=== PATIENT | female | born 1965 | race Caucasian/White ===

== ENCOUNTER → 2016-11-15 | Outpatient (CLI) | payer BC ==
[~2016-11-15] MED LIST: CILOXAN 5 ML5 M1 OP; MOTRIN800 MG PO; SKELAXIN800 MG PO; SYNTHROID0.175 MG PO
[2016-11-15 08:09] LABS: BASO # 0.1 10*3/uL (0.0-0.1); BASO % 0.8 % (0.0-1.0); EOS # 0.2 10*3/uL (0.0-0.4); EOS % 2.5 % (1.0-4.0); HEMATOCRIT 45.4 % (37.0-47.0); LYMPH # 2.3 10*3/uL (1.3-4.4); MEAN CELL VOLUME 90.4 fl (81.0-99.0); MEAN CORPUSCULAR HGB 29.9 pg (27.0-31.0); MEAN PLATELET VOLUME 10.3 fl (9.6-12.3); MONO # 0.7 10*3/uL (0.1-1.0); MONO % 8.4 % (3.0-9.0); NEUT # 4.6 10*3/uL (2.3-7.9); PLATELET COUNT AUTOMATED 317 10*3/uL (130-400); RED BLOOD COUNT 5.02 10*6/uL (4.10-5.10); RED CELL DISTRI WIDTH 12.9 % (0-14.5); WHITE BLOOD COUNT 7.9 10*3/uL (4.8-10.8)
[2016-11-15 08:20] LABS: ALBUMIN 3.4 gm/dl (3.1-4.5); CARBON DIOXIDE 27 mmol/L (21-32); CHLORIDE 110 mmol/L (98-107); POTASSIUM 4.6 mmol/L (3.5-5.1); SODIUM 142 mmol/L (136-145)
[2016-11-15 08:28] LABS: ALKALINE PHOSPHATASE 107 U/L (45-117); BILIRUBIN, TOTAL 0.4 mg/dl (0.2-1.0); BUN 11 mg/dl (7-24); CHOLESTEROL 244 mg/dL (<200); EST GLOM FILT AFRICAN AMERICAN > 60 ml/min; FREE T4 0.97 ng/dl (0.76-1.46); GLUCOSE 92 mg/dL (65-99); HDL CHOLESTEROL 42 mg/dl (40-60); LDL CHOLESTEROL 158 mg/dL (9-159); SGOT/AST 14 IU/L (3-35); SGPT/ALT 21 U/L (12-78); TRIGLYCERIDES 222 mg/dl (<150); VLDL CHOLESTEROL 44 mg/dL (6-40)
[2016-11-16 08:12] LABS: ESTRADIOL 004515 5.1 pg/mL (.); PROGESTERONE 004317 0.1 ng/mL (.); THYROID PEROXIDASE (TPO) AB 38 IU/mL (0-34)
[2016-11-16 13:09] LABS: THYROGLOBULIN ANTIBODY <1.0 IU/mL (0.0-0.9)
[2016-11-16 16:10] LABS: THYROTROPIN RECEPTOR AB 36.83 IU/L (0.00-1.75)
== END | disposition home or self-care (01) ==
LOC: LAB 07:33
PROVIDERS: Family Medicine
DX: Z00.01 Encounter for general adult medical examination with abnormal findings (principal); E89.0 Postprocedural hypothyroidism; E55.9 Vitamin D deficiency, unspecified; E05.00 Thyrotoxicosis with diffuse goiter without thyrotoxic crisis or storm; N95.1 Menopausal and female climacteric states; H05.242 Constant exophthalmos, left eye; Z72.0 Tobacco use

== ENCOUNTER → 2017-08-07 | Outpatient (CLI) | payer BC ==
[2017-08-07 08:43] LABS: HEMATOCRIT 43.1 % (37.0-47.0); HEMOGLOBIN 14.4 g/dl (12.0-16.0); MEAN CELL VOLUME 88.1 fl (81.0-99.0); MEAN CORPUSCULAR HGB 29.4 pg (27.0-31.0); MEAN CORPUSCULAR HGB CONC 33.4 g/dl (33.0-37.0); MEAN PLATELET VOLUME 10.8 fl (9.6-12.3); RED BLOOD COUNT 4.89 10*6/uL (4.10-5.10); RED CELL DISTRI WIDTH 12.6 % (0-14.5); WHITE BLOOD COUNT 8.8 10*3/uL (4.8-10.8)
[2017-08-07 09:05] LABS: ALBUMIN 3.6 gm/dl (3.1-4.5); ALKALINE PHOSPHATASE 113 U/L (45-117); BUN 7 mg/dl (7-24); CHLORIDE 109 mmol/L (98-107); CHOLESTEROL 209 mg/dL (<200); CREATININE 0.83 mg/dL (0.55-1.02); FREE T4 2.12 ng/dl (0.76-1.46); HDL CHOLESTEROL 44 mg/dl (40-60); LDL CHOLESTEROL 131 mg/dL (9-159); POTASSIUM 3.9 mmol/L (3.5-5.1); SGOT/AST 18 IU/L (3-35); SGPT/ALT 30 U/L (12-78); SODIUM 143 mmol/L (136-145); TOTAL PROTEIN 7.2 gm/dL (6.4-8.2); TRIGLYCERIDES 168 mg/dl (<150); VLDL CHOLESTEROL 34 mg/dL (6-40)
[2017-08-07 09:10] LABS: THYROID STIM HORMONE (HS) 0.006 uIU/ml (0.358-4.75)
[2017-08-08 11:03] LABS: THYROID PEROXIDASE (TPO) AB 32 IU/mL (0-34)
[2017-08-08 12:05] LABS: THYROGLOBULIN ANTIBODY <1.0 IU/mL (0.0-0.9)
== END | disposition home or self-care (01) ==
LOC: LAB 08:02
PROVIDERS: Family Medicine
DX: F41.1 Generalized anxiety disorder (principal); E74.09 Other glycogen storage disease; R53.83 Other fatigue; E03.9 Hypothyroidism, unspecified; E78.00 Pure hypercholesterolemia, unspecified; F41.0 Panic disorder [episodic paroxysmal anxiety]; E55.9 Vitamin D deficiency, unspecified

== ENCOUNTER → 2018-09-24 | Outpatient (CLI) | payer OTHER ==
[2018-09-24 08:58] LABS: HEMATOCRIT 44.4 % (37.0-47.0); HEMOGLOBIN 14.5 g/dl (12.0-16.0); MEAN CELL VOLUME 95.9 fl (81.0-99.0); MEAN CORPUSCULAR HGB 31.3 pg (27.0-31.0); MEAN CORPUSCULAR HGB CONC 32.7 g/dl (33.0-37.0); MEAN PLATELET VOLUME 11.1 fl (9.6-12.3); RED BLOOD COUNT 4.63 10*6/uL (4.10-5.10); RED CELL DISTRI WIDTH 12.8 % (0-14.5); WHITE BLOOD COUNT 12.4 10*3/uL (4.8-10.8)
[2018-09-24 09:19] LABS: ALBUMIN 3.4 gm/dl (3.1-4.5); BUN 10 mg/dl (7-24); CHLORIDE 110 mmol/L (98-107); CHOLESTEROL 227 mg/dL (<200); POTASSIUM 4.2 mmol/L (3.5-5.1); SGOT/AST 9 IU/L (3-35); SGPT/ALT 16 U/L (12-78); SODIUM 141 mmol/L (136-145); TOTAL PROTEIN 7.1 gm/dL (6.4-8.2); TRIGLYCERIDES 136 mg/dl (<150); VLDL CHOLESTEROL 27 mg/dL (6-40)
[2018-09-24 09:20] LABS: ALKALINE PHOSPHATASE 92 U/L (45-117)
[2018-09-24 09:24] LABS: FREE T4 0.93 ng/dl (0.76-1.46); HDL CHOLESTEROL 39 mg/dl (40-60); LDL CHOLESTEROL 161 mg/dL (9-159)
== END | disposition home or self-care (01) ==
LOC: LAB 08:03 → MAMMO 10:20
PROVIDERS: Family Medicine
DX: E78.00 Pure hypercholesterolemia, unspecified (principal); E03.9 Hypothyroidism, unspecified; E55.9 Vitamin D deficiency, unspecified; F41.1 Generalized anxiety disorder; E74.00 Glycogen storage disease, unspecified

== ENCOUNTER → 2020-07-05 | Outpatient (CLI) | payer BC ==
[2020-07-05 14:11] LABS: ALBUMIN 3.5 gm/dl (3.1-4.5); FREE T4 0.97 ng/dl (0.76-1.46)
[2020-07-05 14:16] LABS: THYROID STIM HORMONE (HS) 0.062 uIU/ml (0.358-4.75)
== END | disposition home or self-care (01) ==
LOC: LAB 13:17
PROVIDERS: ATTEND Internal Medicine
DX: E55.9 Vitamin D deficiency, unspecified (principal); E89.0 Postprocedural hypothyroidism

== ENCOUNTER → 2020-10-11 | Outpatient (CLI) | payer BC ==
[2020-10-11 09:48] LABS: ALBUMIN 3.6 gm/dl (3.1-4.5)
[2020-10-11 09:55] LABS: FREE T4 1.3 ng/dl (0.76-1.46); THYROID STIM HORMONE (HS) 0.173 uIU/ml (0.358-4.75)
[2020-10-12 05:07] LABS: PROGESTERONE <0.1 ng/mL (.)
== END | disposition home or self-care (01) ==
LOC: LAB 08:56
PROVIDERS: ATTEND Internal Medicine
DX: E55.9 Vitamin D deficiency, unspecified (principal); E05.00 Thyrotoxicosis with diffuse goiter without thyrotoxic crisis or storm; N95.1 Menopausal and female climacteric states

== ENCOUNTER → 2021-07-14 | Outpatient (CLI) | payer OTHER ==
[2021-07-14 10:45] LABS: HEMATOCRIT 40.3 % (37.0-47.0); MEAN CELL VOLUME 95.7 fl (81.0-99.0); MEAN CORPUSCULAR HGB 32.3 pg (27.0-31.0); MEAN CORPUSCULAR HGB CONC 33.7 g/dl (33.0-37.0); MEAN PLATELET VOLUME 10.7 fl (9.6-12.3); RED BLOOD COUNT 4.21 10*6/uL (4.10-5.10); RED CELL DISTRI WIDTH 13.3 % (0-14.5); WHITE BLOOD COUNT 7.4 10*3/uL (4.8-10.8)
[2021-07-14 10:53] LABS: ALBUMIN 3.2 gm/dl (3.1-4.5); ALKALINE PHOSPHATASE 65 U/L (45-117); BUN 7 mg/dl (7-24); CHLORIDE 113 mmol/L (98-107); CREATININE 0.76 mg/dL (0.55-1.02); SGOT/AST 12 IU/L (3-35); SGPT/ALT 13 U/L (12-78); SODIUM 145 mmol/L (136-145); TOTAL PROTEIN 6.6 gm/dL (6.4-8.2)
== END | disposition home or self-care (01) ==
LOC: LAB 10:15
PROVIDERS: ATTEND Family Medicine
DX: U07.1 COVID-19 (principal)

== ENCOUNTER 2024-02-14 10:47 | Emergency (ER) | payer SELFPAY ==
[~2024-02-14] VITALS: Ht 170.1 cm; Wt 63.5 kg
[2024-02-14 11:11] VITALS: BP 122/69
[2024-02-14] MEDS ORDERED: LEVOTHYROXINE100 MC1 PO (11:12)
[2024-02-14] MEDS ORDERED: KEFLEX 500 MG E2 CAP PO (11:13)
== END 2024-02-14 12:15 | disposition home or self-care (01) ==
LOC: ED 10:47
DX: L72.3 Sebaceous cyst (principal); Z88.8 Allergy status to other drugs, medicaments and biological substances; Z98.890 Other specified postprocedural states

== ENCOUNTER 2024-11-21 11:36 | Emergency (ER) | payer SELFPAY ==
[~2024-11-21] VITALS: Ht 170.1 cm; Wt 65.8 kg
[~2024-11-21 11:36] MED LIST changes: +KEFLEX 500 MG E2 CAP PO; +LEVOTHYROXINE100 MC1 PO
[2024-11-21 11:52] VITALS: BP 114/68
[2024-11-21 12:45] LABS: BASO # 0.1 10*3/uL (0.0-0.1); BASO % 0.8 % (0.0-1.0); EOS # 0.1 10*3/uL (0.0-0.4); EOS % 0.6 % (1.0-4.0); HEMATOCRIT 42.7 % (37.0-47.0); MEAN CELL VOLUME 99.5 fl (81.0-99.0); MEAN CORPUSCULAR HGB 32.4 pg (27.0-31.0); MEAN CORPUSCULAR HGB CONC 32.6 g/dl (33.0-37.0); MEAN PLATELET VOLUME 10.2 fl (9.6-12.3); MONO # 0.7 10*3/uL (0.1-1.0); MONO % 5.1 % (3.0-9.0); NEUT # 10.9 10*3/uL (2.3-7.9); NEUT % 78.9 % (47.0-73.0); PLATELET COUNT AUTOMATED 264 10*3/uL (130-400); RED BLOOD COUNT 4.29 10*6/uL (4.10-5.10); RED CELL DISTRI WIDTH 13.8 % (0-14.5); WHITE BLOOD COUNT 13.8 10*3/uL (4.8-10.8)
[2024-11-21 13:05] LABS: BUN 6 mg/dl (9-23); CHLORIDE 109 mmol/L (98-107)
== END 2024-11-21 13:53 | disposition short-term general hospital (02) ==
LOC: ED 11:36
PROVIDERS: Internal Medicine
DX: R00.1 Bradycardia, unspecified (principal); I82.90 Acute embolism and thrombosis of unspecified vein; R55 Syncope and collapse; Z88.8 Allergy status to other drugs, medicaments and biological substances; Z79.899 Other long term (current) drug therapy; Z98.890 Other specified postprocedural states